=== PATIENT | female | born 1960 | race Caucasian/White ===

== ENCOUNTER 2018-05-08 13:44 | Emergency (ER) | payer BC ==
[~2018-05-08] VITALS: Ht 170.2 cm; Wt 83.9 kg
[2018-05-08] MEDS ORDERED: ACETAMINOPHEN ES 500 MG TABLET PO ONE (14:00)
[2018-05-08] MEDS ORDERED: ONDANSETRON ODT 4 MG TAB.RAPDIS SL ONE (14:00)
[2018-05-08] MEDS ORDERED: ACETAMINOPHEN ES 500 MG TABLET ONE (14:05)
[2018-05-08] MEDS ORDERED: ONDANSETRON ODT 4 MG TAB.RAPDIS ONE (14:06)
[2018-05-08] MEDS ORDERED: ALPRAZOLAM 0.5 MG TABLET ONE (14:11)
[2018-05-08] MEDS ORDERED: ALPRAZOLAM 0.25 MG TABLET PO ONE (14:15)
--- NOTE | 2018-05-08 14:51 | NUR ---
Patient discharged to home in stable conditon. Written and verbal after care instructions given. Patient verbalizes understanding of instructions.
== END 2018-05-08 14:55 | disposition home or self-care (01) ==
LOC: ER 13:56
DX: S09.90XA Unspecified injury of head, initial encounter (principal); Z90.710 Acquired absence of both cervix and uterus; Z88.0 Allergy status to penicillin; Z88.1 Allergy status to other antibiotic agents; W22.8XXA Striking against or struck by other objects, initial encounter; Y93.89 Activity, other specified; Y92.89 Other specified places as the place of occurrence of the external cause; Y99.8 Other external cause status
CPT/HCPCS: 70450; A4663; A9150; Q0162